=== PATIENT | male | born 1965 | race Caucasian/White ===

== ENCOUNTER 2022-02-05 10:37 | Emergency (ER) | payer SELFPAY ==
[~2022-02-05] VITALS: Ht 182.9 cm; Wt 68.0 kg
--- NOTE | 2022-02-05 11:10 | NUR ---
CODE STROKE activated by .
--- NOTE | 2022-02-05 11:12 | NUR ---
TELEMED REQUEST filed, connect ID:[id number].
--- NOTE | 2022-02-05 11:12 | NUR ---
Pt refusing saline lock and blood draw, at bedside speaking with pt.
--- NOTE | 2022-02-05 11:16 | NUR ---
Pt is requesting a saline lock be placed in his leg because that is where they usually get it.
--- NOTE | 2022-02-05 11:17 | NUR ---
Pt is refusing to go to CT until he gets IV pain medication.
[2022-02-05] MEDS ORDERED: IV NORMAL SALINE 1000 ML BAG IV ONE (11:30)
[2022-02-05] MEDS ORDERED: ONDANSETRON 4 MG/2 ML VIAL ONE (11:40)
[2022-02-05] MEDS ORDERED: HYDROMORPHONE 1 MG/1 ML DISP.SYRIN ONE ×3 (11:41→13:19)
--- NOTE | 2022-02-05 11:43 | NUR ---
Saline Lock started to LLE (okay with ERMD) and pt medicated with Dilaudid IV as ordered.
[2022-02-05] MEDS ORDERED: ONDANSETRON 4 MG/2 ML VIAL IV ONE (11:45)
[2022-02-05] MEDS ORDERED: HYDROMORPHONE 1 MG/1 ML DISP.SYRIN IV ONE ×3 (11:45→14:15)
--- NOTE | 2022-02-05 11:47 | NUR ---
Pt to CT via [facility] with bioinformatics technician and RN.
--- NOTE | 2022-02-05 11:53 | NUR ---
Called [facility] for ALS transport for MRI at [facility], per Jhon they do not have any ALS units available.
[2022-02-05 11:55] LABS: HEMATOCRIT 23.8 % (36.7-47.1); MEAN CORPUSCULAR HEMOGLOBIN 28.5 uug (23.8-33.4); MEAN CORPUSCULAR VOLUME 86.9 fL (73.0-96.2); PLATELET COUNT (AUTO) 136 K/uL (152-348)
--- NOTE | 2022-02-05 12:01 | NUR ---
TEXT DR. BARNETT FOR MRI APPROVAL.
[2022-02-05 12:02] LABS: CARBON DIOXIDE 23 mmol/L (21-32); CHLORIDE 109 mmol/L (98-107); GLUCOSE 101 mg/dL (74-106); POTASSIUM 4.2 mmol/L (3.5-5.1); UREA NITROGEN, BLOOD 16 mg/dL (7-18)
--- NOTE | 2022-02-05 12:04 | NUR ---
Pt back from CT.
--- NOTE | 2022-02-05 12:04 | NUR ---
Called following Ambulances for ALS transport and they all do not have any ALS units available: [facility], [facility] and [facility]. [facility] stated to call back after pt's insurance coverage is verified as pt is a self pay status at this time.
--- NOTE | 2022-02-05 12:05 | NUR ---
Pt refused having his vital signs taken at this time stating "I will let you when".
--- NOTE | 2022-02-05 12:09 | NUR ---
Spoke with Anguillermo at [facility] regarding MRI who stated to call him at [phone] when we have confirmed transport.
[2022-02-05 12:11] LABS: ALANINE AMINOTRANSFERASE 26 U/L (16-63); ALKALINE PHOSPHATASE 67 U/L (50-136); ASPARTATE AMINOTRANSFERASE 18 U/L (15-37); BILIRUBIN,DIRECT 0.1 mg/dL (0.0-0.2); BILIRUBIN,TOTAL 0.5 mg/dL (0.2-1.0); TOTAL PROTEIN, SERUM 6.1 g/dL (6.4-8.2)
--- NOTE | 2022-02-05 12:22 | NUR ---
Pt refused Covid antigen swab, Pt also stated he does not want an MRI, notified.
--- NOTE | 2022-02-05 13:00 | NUR ---
Per Dr. Hickey and Dr. Jenniffer palomino to transport pt for MRI via BLS transport. Called [facility] for continuous pickling line pickler [id number]. Called and notified Priyank at [facility].
--- NOTE | 2022-02-05 13:45 | NUR ---
vertical punch operator in ER to take pt for MRI. Pt states he needs to talk on the phone now and they need to wait.
--- NOTE | 2022-02-05 13:50 | NUR ---
Patient does not wish to proceed with medical care recommended by (Edelmira). Patient given information related to possible complications, up to and including , which could occur as a result of leaving the hospital at this time. Patient verbalizes understanding of risks involved due to leaving against medical advice. Patient refuse to sign AMA form. IV removed. Catheter intact and site benign. Pressure and 4x4 gauze applied to site. No bleeding noted. Pt walked out of ER w/ steady gait.
[2022-02-05 14:12] VITALS: BP 115/72
[2022-02-06 00:58] LABS: BAND % (MANUAL) 4 % (0-10); LYMPHOCYTES % (MANUAL) 5 % (20-40); METAMYELOCYTES % 1 % (0-1); MONOCYTES % (MANUAL) 14 % (2-10); NEUTROPHILS % (MANUAL) 76 % (42-75)
== END 2022-02-05 13:50 | disposition left against medical advice (07) ==
LOC: ER 10:37
DX: I63.9 Cerebral infarction, unspecified (principal); R10.84 Generalized abdominal pain; R11.2 Nausea with vomiting, unspecified; Z88.8 Allergy status to other drugs, medicaments and biological substances; Z91.041 Radiographic dye allergy status
CPT/HCPCS: 36415; 70450; 71045; 74176; 80048; 80076; 83605; 84484; 85007; 85025; 85730; 93005 ×2; 96361; 96374; 96375; 96376; 99291; J1170 ×3; J2405; J7040; 70030-TC; A4663